=== PATIENT | male | born 1980 | race Caucasian/White ===

== ENCOUNTER → 2017-08-21 | Outpatient (CLI) | payer BC, MEDICAID ==
[~2017-08-21] MED LIST: DARVOCET-N 1001 EACH PO; HYDROCODONE/ACE1 TA5 PO; LORTAB 500 MG-71 TAB PO; MOTRIN600 MG PO; NAPROSYN500 M1 PO; SUBOXONE1 FI2 SL; VOLTAREN75 MG PO; ZOFRAN4 MG PO
--- NOTE | 2017-08-21 14:59 | RADIOLOGY REPORT PS360 ---
MRI-L-SPINE W/O COMPARISON: None HISTORY: Low back pain TECHNIQUE: Standard sagittal and axial sequences were performed along with a myelogram sequence FINDINGS: There is normal curvature and alignment. The marrow signal is normal in all lumbar vertebrae. There is a normal healthy high signal in each lumbar disc. There is no abnormal disc protrusion. There are mild hypertrophic facet changes at L3-4, L4-5 and L5-S1 levels. There is no significant neural foraminal narrowing noted. The myelogram sequence is unremarkable. The conus is normal. IMPRESSION: Mild hypertrophic facet changes lower lumbar spine otherwise essentially unremarkable study
== END ==
LOC: RAD 08-15 08:00
DX: M54.5 Low back pain (principal)

== ENCOUNTER 2017-09-06 12:23 | Emergency (ER) | payer BC, MEDICAID ==
[~2017-09-06] VITALS: Ht 182.9 cm; Wt 74.8 kg
[2017-09-06 12:52] VITALS: BP 114/73
--- OUTSIDE RECORDS SUMMARY | 2017-09-06 17:25 | External Medical Summary Rpt | CCD ---
Author Author , SUSANA MEZA Address Unknown Phone Care Team Providers Care Training And Development Project Leader Name Role Phone [facility] Unavailable Unavailable MEDICAL GROUP, [facility], [facility] Unavailable Unavailable [facility] Unavailable Unavailable [facility], [facility] Unavailable Unavailable [facility], [facility], LU[facility] Unavailable Unavailable Purpose Continuity of Care Document - 01-28-2016 through 2016 Problems Code Diagnosis DOS Provider Status Z202 CONTACT 01-02-2017 [facility] INFECT SEXUAL MODE TRANSMS R112 NAUSEA WITH 11-16-2016 [facility] [id number] OTHER 11-16-2016 [facility] [id number] PAIN IN 01-28-2016 [facility] [id number] PAIN IN 01-28-2016 [facility] [id number] PAIN IN 01-28-2016 [facility] [id number] PAIN IN 01-28-2016 [facility] [id number] PAIN IN 01-28-2016 [facility] Medications Na ND Rx Da Fi Fi Am Da Di Ph RX Ph St me C No te ll ll ou ys ag ar # ys at rm s nt no ma ic us Or Da si cy ia de te s n re d ES 68 09 10 30 30 00 HO Ac CI 00 -2 -2 .0 00 ME ti TA 10 2- 7- 00 06 TO ve LO 19 20 20 09 WN RI 60 17 17 48 AM 3 33 PH AR 10 MA CY MG OF TA BL CY ET NT HI AN A TE 24 09 10 15 14 00 HO Ac RB 38 -0 -1 .0 00 ME ti IN 50 7- 3- 00 06 TO ve AF 52 20 20 09 WN IN 40 17 17 38 E 5 98 PH 1% AR MA CR CY EA M OF CY NT HI AN A GA 45 09 10 90 30 00 HO Ac BA 96 -0 -0 .0 00 ME ti PE 30 1- 6- 00 04 TO ve NT 55 20 20 02 WN IN 65 17 17 44 0 25 PH 30 AR 0 MA MG CY CA OF PS UL CY E NT HI AN A ME 68 09 10 30 30 00 HO Ac LO 38 -0 -0 .0 00 ME ti XI 20 1- 6- 00 06 TO ve CA 05 20 20 09 WN M 00 17 17 35 7. 5 93 PH 5 AR MG MA CY TA BL OF ET CY NT HI AN A AM 00 09 10 30 30 00 HO Ac IT 78 -0 -0 .0 00 ME ti RI 11 1- 6- 00 06 TO ve PT 48 20 20 09 WN YL 71 17 17 35 IN 0 94 PH E AR HC MA L CY 25 OF MG CY TA NT B HI AN A GA 45 08 09 90 30 00 HO Ac BA 96 -1 -1 .0 00 ME ti PE 30 1- 5- 00 04 TO ve NT 55 20 20 02 WN IN 55 17 17 41 0 53 PH 10 AR 0 MA MG CY CA OF PS UL CY E NT HI AN A HY 00 08 09 [address] 18 -1 -1 .0 00 ME ti OX 50 1- 5- 00 06 TO ve YZ 67 20 20 09 WN IN 40 17 17 23 E 5 17 PH PA AR M MA 25 CY MG OF CA CY P NT HI AN A TR 50 03 04 15 15 00 HO Ac AZ 11 -2 -2 .0 00 ME ti OD 10 7- 8- 00 06 TO ve ON 43 20 20 08 WN E 30 17 17 39 50 2 41 PH AR MG MA CY TA BL OF ET CY NT HI AN A ET 51 03 04 16 4 00 HO Ac OD 67 -1 -2 .0 00 ME ti OL 24 6- 1- 00 06 TO ve AC 01 20 20 08 WN 80 17 17 33 40 1 54 PH 0 AR MG MA CY TA BL OF ET CY NT HI AN A AM 00 03 04 40 10 00 HO Ac OX 78 -1 -2 .0 00 ME ti IC 12 6- 1- 00 06 TO ve IL 61 20 20 08 WN LI 30 17 17 33 N 5 55 PH 50 AR 0 MA MG CY CA OF PS UL CY E NT HI AN A BU 50 03 04 28 16 00 HO Ac RI 38 -0 -0 .0 00 ME ti EN 30 7- 7- 00 04 TO ve OR 28 20 20 02 WN PH 79 17 17 17 IN 3 76 PH -N AR AL JV OX CY ON OF 8- 2 CY MG NT HI SL AN A BU 00 02 03 25 14 00 HO Ac RI 09 -2 -2 .0 00 ME ti EN 35 2- 4- 00 04 TO ve OR 72 20 20 02 WN PH 15 17 17 15 IN 6 87 PH -N AR AL JV OX CY ON OF 8- 2 CY MG NT HI SL AN A BU 00 02 03 27 15 00 HO Ac RI 09 -0 -1 .0 00 ME ti EN 35 6- 0- 00 04 TO ve OR 72 20 20 02 WN PH 15 17 17 13 IN 6 46 PH -N AR AL JV OX CY ON OF 8- 2 CY MG NT HI SL AN A BU 00 01 02 26 15 00 HO Ac RI 09 -2 -2 .0 00 ME ti EN 35 3- 4- 00 04 TO ve OR 72 20 20 02 WN PH 15 17 17 11 IN 6 32 PH -N AR AL JV OX CY ON OF 8- 2 CY MG NT HI SL AN A ON 45 01 02 15 5 00 HO Ac DA 96 -0 -1 .0 00 ME ti NS 30 6- 0- 00 06 TO ve ET 53 20 20 07 WN RO 83 17 17 90 N 0 14 PH HC AR L MA 4 CY MG OF TA BL CY ET NT HI AN A BU 00 01 02 23 13 00 HO Ac RI 09 -1 -1 .0 00 ME ti EN 35 0- 0- 00 04 TO ve OR 72 20 20 02 WN PH 15 17 17 09 IN 6 65 PH -N AR AL JV OX CY ON OF 8- 2 CY MG NT HI SL AN A BU 00 12 01 27 15 00 HO Ac RI 09 -2 -2 .0 00 ME ti EN 35 7- 7- 00 04 TO ve OR 72 20 20 02 WN PH 15 16 17 07 IN 6 73 PH -N AR AL JV OX CY ON OF 8- 2 CY MG NT HI SL AN A RI 57 12 01 12 2 00 HO Ac OM 66 -2 -2 .0 00 ME ti ET 40 1- 0- 00 06 TO ve CHAUHAN 10 20 20 15 WN ZI 81 16 17 75 NE 8 86 PH AR 25 MA CY MG TA BL ET AM 00 12 01 30 10 00 HO Ac OX 78 -1 -1 .0 00 ME ti IC 12 3- 3- 00 06 TO ve IL 61 20 20 07 WN LI 30 16 17 74 N 5 84 PH 50 AR 0 MA MG CY CA OF PS UL CY E NT HI AN A CH 00 12 01 47 15 00 HO Ac LO 11 -1 -1 3. 00 ME ti RH 62 3- 3- 00 06 TO ve EX 00 20 20 0 07 WN ID 11 16 17 74 IN 6 85 PH E AR 0. MA 12 CY % RI OF NS E CY NT HI AN A BU 00 12 01 34 19 00 HO Ac RI 09 -0 -1 .0 00 ME ti EN 35 8- 3- 00 04 TO ve OR 72 20 20 02 WN PH 15 16 17 05 IN 6 66 PH -N AR AL MA OX CY ON OF 8- 2 CY MG NT HI SL AN A BU 00 12 01 6. 3 00 HO Ac RI 09 -0 -0 00 00 ME ti EN 35 5- 9- 0 04 TO ve OR 72 20 20 02 WN PH 15 16 17 05 IN 6 09 PH -N AR AL MA OX CY ON OF 8- 2 CY MG NT HI SL AN A Procedures Procedure DOS Code Location Performer Comment IAADIADOO 81366 [facility] RADEX 44071 [facility] W[facility]ST 2 6 MEDICAL VIEWS [facility] RADIOLOGI 57423 [facility] EXAM 6 MEDICAL KNEE IMAGING COMPLETE ASS 4/MORE VIEWS RADEX 74637 [facility] ALL HAND 2 6 MEDICAL VIEWS IM[facility] ASS Encounters Encounter Start End Date Code Location Performer Type Date [facility] T OFFICE 52000 [facility] T VISIT 5 INC MINUTES OFFICE 47108 [facility] T NEW 30 MED[facility] GROUP
--- OUTSIDE RECORDS SUMMARY | 2017-09-06 17:25 | External Medical Summary Rpt | CCD ---
Author Author , SUSANA MEZA Address Unknown Phone [email or web address] Care Team Providers Care Jail Guard Name Role Phone [facility] Unavailable Unavailable MEDICAL GROUP, [facility] HOLDEN ALL, HOLDEN ALL Unavailable Unavailable [facility] Unavailable Unavailable INC, [facility] Unavailable Unavailable [facility], [facility] LUPE Unavailable Unavailable Purpose Continuity of Care Document - 01-28-2016 through 2016 Problems Code Diagnosis DOS Provider Status Z202 CONTACT 01-02-2017 [facility] INFECT SEXUAL MODE TRANSMS R112 NAUSEA WITH 11-16-2016 [facility]NS[facility] [id number] OTHER 11-16-2016 [facility] [id number] PAIN IN 01-28-2016 [facility] [id number] PAIN IN 01-28-2016 [facility] [id number] PAIN IN 01-28-2016 [facility] [id number] PAIN IN 01-28-2016 [facility] [id number] PAIN IN 01-28-2016 [facility] Medications Na [...] ve LO 19 20 20 09 WN OR 60 17 17 48 AM 3 33 [...] 03 04 28 16 00 HO Ac OR 38 -0 -0 .0 00 ME ti EN 30 7- 7- 00 04 TO ve OR 28 20 20 02 WN PH 79 17 17 17 IN 3 76 PH -N AR AL JV OX CY ON OF 8- 2 CY MG NT HI SL AN A BU 00 02 03 25 14 00 HO Ac OR 09 -2 -2 .0 00 ME ti EN 35 2- 4- 00 04 TO ve OR 72 20 20 02 WN PH 15 17 17 15 IN 6 87 PH -N AR AL JV OX CY ON OF 8- 2 CY MG NT HI SL AN A BU 00 02 03 27 15 00 HO Ac OR 09 -0 -1 .0 00 ME ti EN 35 6- 0- 00 04 TO ve OR 72 20 20 02 WN PH 15 17 17 13 IN 6 46 PH -N AR AL JV OX CY ON OF 8- 2 CY MG NT HI SL AN A BU 00 01 02 26 15 00 HO Ac OR 09 -2 -2 .0 00 ME ti [...] 01 02 23 13 00 HO Ac OR 09 -1 -1 .0 00 ME ti EN 35 0- 0- 00 04 TO ve OR 72 20 20 02 WN PH 15 17 17 09 IN 6 65 PH -N AR AL JV OX CY ON OF 8- 2 CY MG NT HI SL AN A BU 00 12 01 27 15 00 HO Ac OR 09 -2 -2 .0 00 ME ti EN 35 7- 7- 00 04 TO ve OR 72 20 20 02 WN PH 15 16 17 07 IN 6 73 PH -N AR AL JV OX CY ON OF 8- 2 CY MG NT HI SL AN A OR 57 12 01 12 2 00 HO [...] 12 01 34 19 00 HO Ac OR 09 -0 -1 .0 00 ME ti EN 35 8- 3- 00 04 TO ve OR 72 20 20 02 WN PH 15 16 17 05 IN 6 66 PH -N AR AL MA OX CY ON OF 8- 2 CY MG NT HI SL AN A BU 00 12 01 6. 3 00 HO Ac OR 09 -0 -0 00 00 ME ti EN 35 5- 9- 0 04 TO ve OR 72 20 20 02 WN PH 15 16 17 05 IN 6 09 PH -N AR AL MA OX CY ON OF 8- 2 CY MG NT HI SL AN A Procedures Procedure DOS Code Location Performer Comment IAADIADOO 59161 [facility] RADEX 52045 [facility] ALL WRIST 2 6 MEDICAL VIEWS [facility] RADIOLOGI 38057 [facility] C EXAM 6 MEDICAL KNEE IMAGING COMPLETE ASS 4/MORE VIEWS RADEX 08064 [facility] ALL HAND 2 6 MEDICAL VIEWS IMAGING ASS Encounters Encounter Start End Date Code Location Performer Type Date [facility]EN [facility] T OFFICE 77856 [facility] T VISIT 5 INC MINUTES OFFICE 66058 [facility] 7 [facility] T NEW 30 MEDICAL MINUTES GROUP
--- OUTSIDE RECORDS SUMMARY | 2017-09-06 17:26 | External Medical Summary Rpt ---
Author Author SUSANA Pichardo, [email or web address] Organization [employer] Address Unknown Phone Unavailable Results Thyroxine (T4) free [Mass/volume] in Serum or Plasma Observa Value Referen Units Interpr Notes Date tion ce etation Range Thyroxine 0.76 - ng/dL Normal No Sep 7 (T4) 1.46 informati 2017 3:15 free on in PM [Mass/vol source ume] in data Serum or Plasma Thyrotropin [Units/volume] in Serum or Plasma Observa Value Referen Units Interpr Notes Date tion ce etation Range Thyrotrop 0.358 - uIU/ml Normal No Sep 7 in 3.740 informati 2017 3:15 [Units/vo on in PM lume] in source Serum or data Plasma
--- OUTSIDE RECORDS SUMMARY | 2017-09-06 17:26 | External Medical Summary Rpt ---
Author Author SUSANA Pichardo, FLORIDALMASHAMIKA [employer] Organization [employer] Address Unknown Phone Unavailable [...]
--- OUTSIDE RECORDS SUMMARY | 2017-09-06 17:26 | External Medical Summary Rpt | CCD ---
Demographics Preferred Language Slovenian Marital Status Unknown Latter Day Affiliation Unknown Race Unknown Ethnic Group Unknown Author Author , SUSANA MEZA Address Unknown Phone Immunization Unable to retrieve immunization data due to connection failure with Immunization Registry. Please try again later.
--- OUTSIDE RECORDS SUMMARY | 2017-09-06 17:26 | External Medical Summary Rpt | CCD ---
Demographics Preferred Language Bermudian Marital Status Unknown Judaism Affiliation Unknown Race Unknown Ethnic Group Unknown Author Author , SUSANA MEZA Address Unknown Phone Immunization Unable to retrieve immunization data due to connection failure with Immunization Registry. Please try again later.
--- OUTSIDE RECORDS SUMMARY | 2017-09-06 17:26 | External Medical Summary Rpt | CCD ---
Author Author , SUSANA MEZA Address Unknown Phone [email or web address] Care Team Providers Care Evening Or Night Nurse Supervisor Name Role Phone [facility] Unavailable Unavailable MEDICAL GROUP, [facility] HOLDEN ALL, HOLDEN ALL Unavailable Unavailable [facility] Unavailable Unavailable INC, [facility] Unavailable Unavailable [facility], [facility], LUPE Unavailable Unavailable Purpose Continuity of Care Document - 01-28-2016 through 2016 Problems Code Diagnosis DOS Provider Status Z202 CONTACT 01-02-2017 [facility] INFECT SEXUAL MODE TRANSMS R112 NAUSEA WITH 11-16-2016 [facility] [id number] OTHER 11-16-2016 [facility] [id number] PAIN IN 01-28-2016 [facility] [id number] PAIN IN 01-28-2016 [facility] [id number] PAIN IN 01-28-2016 [facility] [id number] PAIN IN 01-28-2016 [facility] [id number] PAIN IN 01-28-2016 [facility] Medications Na [...] ve LO 19 20 20 09 WN CO 60 17 17 48 AM 3 33 [...] 00 ME ti XI 20 1- 6- 06 TO ve CA 05 20 20 09 WN M 00 17 17 35 7. 5 93 PH 5 AR MG MA CY TA BL OF ET CY NT HI AN A AM 00 09 10 30 30 00 HO Ac IT 78 -0 -0 .0 00 ME ti RI 11 1- 6- 06 TO ve PT 48 20 20 09 WN YL 71 17 17 35 IN 0 94 PH E AR HC MA L CY 25 OF MG CY TA NT B HI AN A GA 45 08 09 90 30 00 HO Ac BA 96 -1 -1 .0 00 ME ti PE 30 1- 5- 04 TO ve NT 55 20 20 [...] 00 ME ti IC 12 6- 1- 06 TO ve IL 61 20 20 08 WN LI 30 17 17 33 N 5 55 PH 50 AR 0 MA MG CY CA OF PS UL CY E NT HI AN A ET 51 03 04 16 4 00 HO Ac OD 67 -1 -2 .0 00 ME ti OL 24 6- 1- 06 TO ve AC 01 20 20 08 WN 80 17 17 33 40 1 54 PH 0 AR MG MA CY TA BL OF ET CY NT HI AN A BU 50 03 04 28 16 00 HO Ac CO 38 -0 -0 .0 00 ME ti EN 30 7- 7- 00 04 TO ve OR 28 20 20 02 WN PH 79 17 17 17 IN 3 76 PH -N AR AL MA OX CY ON OF 8- 2 CY MG NT HI SL AN A BU 00 02 03 25 14 00 HO Ac CO 09 -2 -2 .0 00 ME ti EN 35 2- 4- 00 04 TO ve OR 72 20 20 02 WN PH 15 17 17 15 IN 6 87 PH -N AR AL MA OX CY ON OF 8- 2 CY MG NT HI SL AN A BU 00 02 03 27 15 00 HO Ac CO 09 -0 -1 .0 00 ME ti EN 35 6- 0- 00 04 TO ve OR 72 20 20 02 WN PH 15 17 17 13 IN 6 46 PH -N AR AL MA OX CY ON OF 8- 2 CY MG NT HI SL AN A BU 00 01 02 26 15 00 HO Ac CO 09 -2 -2 .0 00 ME ti EN 35 3- 4- 00 04 TO ve OR 72 20 20 02 WN PH 15 17 17 11 IN 6 32 PH -N AR AL MA OX CY [...] 01 02 23 13 00 HO Ac CO 09 -1 -1 .0 00 ME ti EN 35 0- 0- 00 04 TO ve OR 72 20 20 02 WN PH 15 17 17 09 IN 6 65 PH -N AR AL MA OX CY ON OF 8- 2 CY MG NT HI SL AN A BU 00 12 01 27 15 00 HO Ac CO 09 -2 -2 .0 00 ME ti EN 35 7- 7- 00 04 TO ve OR 72 20 20 02 WN PH 15 16 17 07 IN 6 73 PH -N AR AL MA OX CY ON OF 8- 2 CY MG NT HI SL AN A CO 57 12 01 12 2 00 HO [...] 12 01 34 19 00 HO Ac CO 09 -0 -1 .0 00 ME ti EN 35 8- 3- 00 04 TO ve OR 72 20 20 02 WN PH 15 16 17 05 IN 6 66 PH -N AR AL MA OX CY ON OF 8- 2 CY MG NT HI SL AN A BU 00 12 01 6. 3 00 HO Ac CO 09 -0 -0 00 00 ME ti EN 35 5- 9- 0 04 TO ve OR 72 20 20 02 WN PH 15 16 17 05 IN 6 09 PH -N AR YOGI CARIAS OX CY ON OF 8- 2 CY MG NT HI SL AN A Procedures Procedure DOS Code Location Performer Comment IAADIADOO 21024 [facility] RADEX 10437 [facility] WRIST 2 6 MEDICAL VIEWS IMAGING ASS RADIOLOGI 55246 [facility] C EXAM 6 MEDICAL KNEE IMAGING COMPLETE ASS 4/MORE VIEWS RADEX 98769 [facility] HAND 2 6 MEDICAL VIEWS IMAGING ASS Encounters Encounter Start End Date Code Location Performer Type Date [facility] OUTPATIEN INC T OFFICE 51977 [facility] T VISIT 5 INC MINUTES OFFICE 24069 [facility] 7 7 [facility] T NEW 30 MEDICAL MINUTES GROUP
--- OUTSIDE RECORDS SUMMARY | 2017-09-06 17:26 | External Medical Summary Rpt | CCD ---
Author Author , SUSANA MEZA Address Unknown Phone [email or web address] Care Team Providers Care Hydraulic Riveter Name Role Phone [facility] Unavailable Unavailable MEDICAL GROUP, [facility], [facility] Unavailable Unavailable [facility] Unavailable Un[facility] INC, [facility] Unavailable Unavailable [facility], [facility] Unavailable Unavailable Purpose Continuity of Care Document - 01-28-2016 through 2016 Problems Code Diagnosis DOS Provider Status Z202 CONTACT 01-02-2017 [facility] INFECT SEXUAL MODE TRANSMS R112 NAUSEA WITH 11-16-2016 [facility] R6889 OTHER 11-16-2016 [facility] [id number] PAIN IN 01-28-2016 [facility] [id number] PAIN IN 01-28-2016 [facility] [id number] PAIN IN 01-28-2016 [facility] [id number] PAIN IN 01-28-2016 [facility] [id number] PAIN IN 01-28-2016 [facility] Medications Na [...] ve LO 19 20 20 09 WN WI 60 17 17 48 AM 3 33 [...] 03 04 28 16 00 HO Ac WI 38 -0 -0 .0 00 ME ti EN 30 7- 7- 00 04 TO ve OR 28 20 20 02 WN PH 79 17 17 17 IN 3 76 PH -N AR AL MA OX CY ON OF 8- 2 CY MG NT HI SL AN A BU 00 02 03 25 14 00 HO Ac WI 09 -2 -2 .0 00 ME ti EN 35 2- 4- 00 04 TO ve OR 72 20 20 02 WN PH 15 17 17 15 IN 6 87 PH -N AR AL MA OX CY ON OF 8- 2 CY MG NT HI SL AN A BU 00 02 03 27 15 00 HO Ac WI 09 -0 -1 .0 00 ME ti EN 35 6- 0- 00 04 TO ve OR 72 20 20 02 WN PH 15 17 17 13 IN 6 46 PH -N AR AL MA OX CY ON OF 8- 2 CY MG NT HI SL AN A BU 00 01 02 26 15 00 HO Ac WI 09 -2 -2 .0 00 ME ti [...] 01 02 23 13 00 HO Ac WI 09 -1 -1 .0 00 ME ti EN 35 0- 0- 00 04 TO ve OR 72 20 20 02 WN PH 15 17 17 09 IN 6 65 PH -N AR AL MA OX CY ON OF 8- 2 CY MG NT HI SL AN A BU 00 12 01 27 15 00 HO Ac WI 09 -2 -2 .0 00 ME ti EN 35 7- 7- 00 04 TO ve OR 72 20 20 02 WN PH 15 16 17 07 IN 6 73 PH -N AR AL MA OX CY ON OF 8- 2 CY MG NT HI SL AN A WI 57 12 01 12 2 00 HO [...] 12 01 34 19 00 HO Ac WI 09 -0 -1 .0 00 ME ti EN 35 8- 3- 00 04 TO ve OR 72 20 20 02 WN PH 15 16 17 05 IN 6 66 PH -N AR AL MA OX CY ON OF 8- 2 CY MG NT HI SL AN A BU 00 12 01 6. 3 00 HO Ac WI 09 -0 -0 00 00 ME ti EN 35 5- 9- 0 04 TO ve OR 72 20 20 02 WN PH 15 16 17 05 IN 6 09 PH -N AR YOGI CARIAS OX CY ON OF 8- 2 CY MG NT HI SL AN A Procedures Procedure DOS Code Location Performer Comment IAADIADOO 23251 [facility] RADEX 39134 [facility] WRIST 2 6 MEDICAL VIEWS IMAGING ASS RADIOLOGI 22157 [facility] C EXAM 6 MEDICAL KNEE IMAGING COMPLETE ASS 4/MORE VIEWS RADEX 46543 [facility] HAND 2 6 MEDICAL VIEWS IMAGING ASS Encounters Encounter Start End Date Code Location Performer Type Date [facility] - [facility] OUTPATIEN INC T OFFICE 65144 [facility] T VISIT 5 INC MINUTES OFFICE 99872 [facility] 7 7 HEALTH T NEW 30 MEDICAL MINUTES GROUP
== END 2017-09-06 12:52 | disposition home or self-care (01) ==
LOC: UTC 12:23
DX: Z23 Encounter for immunization (principal)

== ENCOUNTER 2017-10-15 11:30 | Emergency (ER) | payer BC, MEDICAID ==
[~2017-10-15] VITALS: Ht 182.9 cm; Wt 66.2 kg
--- OUTSIDE RECORDS SUMMARY | 2017-10-15 11:35 | External Medical Summary Rpt | CCD ---
Author Author , SUSANA MEZA Address Unknown Phone [email or web address] Purpose Continuity of Care Document - 07-18-2017 through 2016 Problems Code Diagnosis DOS Provider Status A08.4 VIRAL INTESTINAL INFECTION, UNSPECIFIED
--- OUTSIDE RECORDS SUMMARY | 2017-10-15 11:35 | External Medical Summary Rpt | CCD ---
Author Author , SUSANA MEZA Address Unknown Phone [email or web address] Purpose Continuity of Care Document - 07-18-2017 through 2016 Problems Code Diagnosis DOS Provider Status A08.4 VIRAL INTESTINAL INFECTION, UNSPECIFIED
--- OUTSIDE RECORDS SUMMARY | 2017-10-15 11:36 | External Medical Summary Rpt | CCD ---
Demographics Preferred Language Zambian Marital Status Unknown Baptism Affiliation Unknown Race Unknown Ethnic Group Unknown Author Author , SUSANA MEZA Address Unknown Phone Immunization No patient found.
--- OUTSIDE RECORDS SUMMARY | 2017-10-15 11:36 | External Medical Summary Rpt | CCD ---
Author Author [employer] Organization [employer] Address Unknown Phone Unavailable Purpose Continuity of Care Document - through 2016
--- OUTSIDE RECORDS SUMMARY | 2017-10-15 11:36 | External Medical Summary Rpt ---
Author Author SUSANA Pichardo, [employer] Organization [employer] Address Unknown Phone Unavailable [...]
--- OUTSIDE RECORDS SUMMARY | 2017-10-15 11:36 | External Medical Summary Rpt | CCD ---
Demographics Preferred Language Cymro Marital Status Unknown Restorationist Affiliation Unknown Race Unknown Ethnic Group Unknown Author Author , SUSANA MEZA Address Unknown Phone Immunization No patient found.
--- OUTSIDE RECORDS SUMMARY | 2017-10-15 11:36 | External Medical Summary Rpt ---
Author Author SUSANA Pichardo, [employer]IDALMASHAMIKA [employer] Organization [employer] Address Unknown Phone Unavailable [...]
[2017-10-15] MEDS ORDERED: BROMFED DM COU118 ML PO (13:01)
[2017-10-15 13:02] VITALS: BP 100/68
--- NOTE | 2017-10-15 13:02 | [facility]gent [facility] Report ---
History of Present Issue Date/Time Seen by Provider 10/15/17 1254 Visit Reason Pt arrived:Walked Presenting Problem:FLU LIKE SYMPTOMS SINCE SATURDAY. STATES HE SAW BLOOD IN HIS STOOL BUT HE THINKS ITS BECAUSE HE HAS HARD STOOLS. Location if Accident: Onset of symptoms date/time:/ or onset unknown for:MEDICAL HX UNKNOWN Have you (or family members/close friends) recently traveled outside the [place]? N If Yes, where/when: Have you had exposure to infectious disease within the past month? TB? Other? Specify: c/o cough, bodyaches, chills since Saturday. Started suddenly on Saturday. Has had flu vaccine. Not sure if fevers but has felt like it. Dayquil hasn't helped much. Doesn't know what else to take. Denies SOA. Blood in stool once after hard BM last week. Hx diverticulosis. Denies abdominal pain, nausea, vomiting. No blood since. Source patient Exam Limitations no limitations ALLERGIES Coded Allergies: ketorolac (From TORADOL) (01/02/17) Home Medications Reported Medications BUPRENORPHINE HCL/NALOXONE HCL (Suboxone 4 MG-1 MG Sl Film) 1 TAB SL DAILY History Medical History General CAD? No Angina: No MO: No Hypertension? No Hyperlipidemia? No CHF? No DVT? No PE? No COPD? No Asthma? No Anemia? No GERD? No Gastric ulcers? No GI Bleed? No Hernia? No Thyroid Problems? No Hypothyroidism? No CVA? No Seizures? No Diabetes? No UTI? No Stones? No BPH? No GB Disease: No Nephritic Syndrome? No Asplenia? No Hepatitis? No Sickle Cell Disease? No Arthritis? No Migraines? No Cataracts? No Glaucoma? No MRSA? No HIV? No TB? No Anxiety? No Depression? No Cancer? No More? Yes Additional hx: DIVERTICULITIS Immunization HX DT/Tetanus 901223 Surgical Hx Previous Surgery?N Social History Smoking Hx Smoker: Current Every Day Smoker Tobacco: Yes Type Cigarettes Packs/day < 1 Pack Alcohol Alcohol: No Review of Systems All Other Systems Reviewed and Negative Constitutional see HPI Eyes denies drainage ENT nose discharge, nose congestion. denies: ear pain, throat pain. Respiratory see HPI, denies wheezing Cardiovascular denies chest pain Gastrointestinal see HPI Skin denies rash Psychiatric/Neurological denies headache Physical Exam Vital Signs Vital Signs Date Time Temp Pulse Resp B/P Pulse O2 O2 Flow FiO2 Ox Delivery Rate 10/15 1216 98.6 80 20 97/61 98 General Appearance no apparent distress, thin Eye Exam - bilateral eye normal exam Ear, Nose, Throat normal ENT inspection (x/ nasal congestion) Neck non-tender, supple Respiratory Status Yes: trachea midline, non tender chest, non productive cough. No: respiratory distress, use of accessory muscles, pain on inspiration, pain on expiration, productive cough. Lung Sounds anterior: lungs clear. posterior: lungs clear. bilateral: lungs clear. Cardiovascular regular rate/rhythm, no peripheral edema, no murmur Gastrointestinal normal bowel sounds, non tender, soft Neurologic alert, oriented x 3 Mental status normal mood/affect Skin normal color, warm/dry Lymphatic no adenopathy Medical Decision Making LABS/Meds/Orders Pt receiving controlled substance in ED? No Results/Orders Laboratory Tests 10/15/17 1211: Influenza Type A Ag DETECTED H, Influenza Type B Ag NOT DETECTED Orders Procedure Date/time Status [facility] FLU A,B 10/15 1211 Complete Departure Departure Time of Disposition 1259 Disposition DC Home or Self Care(routine) Clinical Impression Primary Impression: Influenza A Condition STABLE Referrals Balta TOBIAS,Pelon Palacio IMMEDIATELY for new or worsening symptoms OR no noticeable improvement over the next 48 hours AND if blood in stool persist/return. 911 for difficulty breathing Patient Instructions DI for Influenza -- Adult Additional Instructions * Too late to start tamiflu. Most effective when started within 48 hours of symptoms onset. * Lots of rest * Increase fluids, water, gatorade, powerade, pedialyte if infant/toddler/child * Monitor Temp. Tylenol every 4 hours as needed no more then 5 times a day or 4000mg in 24 hours and/or ibuprofen every 6 hours as needed no more then 3200mg in 24 hours (as long as your primary care doctor has told you that it is ok to take both) for fever/aches/pain. ER if fever no less than 101 despite tylenol and Ibuprofen * You (or your child) are contagious until no fever, aches, chills x 24 hours without medication for symptoms. * Bromfed may cause drowsiness. Know how it effects you (or your child) before driving, caring for small children, or sending your child to school. No other antihistamines/allergy medications while taking bromfed. Discharge Counseling Counseled pt/family regarding diagnosis, test results, medications/RX, home care, follow up needs Prescriptions Current Visit Scripts D-METHORPHAN HB/P-EPD HCL/BPM (Bromfed Dm Cough Syrup) 10 ML PO QIDP PRN cough #240 ML at 1305
== END 2017-10-15 13:02 | disposition home or self-care (01) ==
LOC: UTC 11:30
DX: J10.1 Influenza due to other identified influenza virus with other respiratory manifestations (principal)